=== PATIENT | female | born 1985 | race Two or more races ===

== ENCOUNTER 2017-05-05 12:54 | Emergency (ER) | payer SELFPAY ==
[~2017-05-05] VITALS: Ht 156.2 cm; Wt 54.4 kg
[2017-05-05] MEDS ORDERED: IV NORMAL SALINE 1000ML BAG 1,000 ML IV SCH (13:23)
[2017-05-05] MEDS ORDERED: KETOROLAC TROMETHAMINE 30 MG/ML INJ. IV ONE (13:30)
[2017-05-05] MEDS ORDERED: LIDO:MAALOX:DONNATAL 1:1:1 15 ML SINGLE DOSE SWSW ONE (13:30)
[2017-05-05] MEDS ORDERED: ONDANSETRON PF 4 MG/2 ML VIAL. IV ONE (13:30)
[2017-05-05 13:39] LABS: BASO % 0 % (0-3); EOS % 0 % (0-3); HEMATOCRIT 40.8 % (36.0-47.0); HEMOGLOBIN 13.7 g/dL (12.0-15.5); LYMPH # 1.3 x10^3/uL (1.0-4.8); LYMPH % 12 % (24-48); MEAN CORPUSCULAR HEMOGLOBIN 31 pg (25-35); MEAN CORPUSCULAR HGB CONC 34 g/dL (31-37); MEAN CORPUSCULAR VOLUME 92 fL (79-100); MONO % 7 % (0-9); NEUT % 81 % (31-73); PLATELET COUNT 249 x10^3/uL (140-400); RED BLOOD COUNT 4.45 x10^6/uL (3.50-5.40); RED CELL DISTRIBUTION WIDTH 13.8 % (11.5-14.5); WHITE BLOOD COUNT 10.7 x10^3/uL (4.0-11.0)
[2017-05-05 13:46] LABS: CALCIUM 9.5 mg/dL (8.5-10.1); CREATININE 0.7 mg/dL (0.6-1.0); GFR 97.6; POTASSIUM 3.5 mmol/L (3.5-5.1)
[2017-05-05 13:52] LABS: ALBUMIN 3.8 g/dL (3.4-5.0); DIRECT BILIRUBIN 0.1 mg/dL (0.0-0.2); TOTAL BILIRUBIN 0.8 mg/dL (0.2-1.0); TOTAL PROTEIN 8.5 g/dL (6.4-8.2)
--- NOTE | 2017-05-05 14:10 | PHYS DOC ---
Past Medical History Past Medical History: No Pertinent History Past Surgical History: No Surgical History Alcohol Use: None Drug Use: None Adult General Chief Complaint Chief Complaint: ABDOMINAL PAIN HPI HPI Patient is a 31 year old female who presents with 2 weeks of dry cough, rhinorrhea, nasal congestion, and chest pain with cough. States she also has multiple episodes of nbnb emesis followed by epigastric abdominal pain, constant , burning and aching. LMP March 5. She has chills without measured fever. She denies dysuria, hematuria, diarrhea, constipation, vaginal discharge. Review of Systems Review of Systems Constitutional: Denies measured fever [] Eyes: Denies change in visual acuity, redness, or eye pain [] HENT: Has nasal congestion and sore throat [] Respiratory: Denies shortness of breath [] Cardiovascular: No additional information not addressed in HPI [] GI: Denies bloody stools or diarrhea [] : Denies dysuria or hematuria [] Musculoskeletal: Denies back pain or joint pain [] Integument: Denies rash or skin lesions [] Neurologic: Denies headache, focal weakness or sensory changes [] Endocrine: Denies polyuria or polydipsia [] Current Medications Current Medications Current Medications Medications (Trade) Dose Ordered Sig/Js Start Time Stop Time Status Last Admin Dose Admin Ketorolac Tromethamine (Toradol) 10 mg 1X ONCE 05/05/17 13:30 05/05/17 13:31 DC 05/05/17 13:30 10 MG Multi-Ingredient Mouthwash/Gargle (Gi Cocktail Single Dose) 15 ml 1X ONCE 05/05/17 13:30 05/05/17 13:31 DC 05/05/17 13:30 15 ML Ondansetron HCl (Zofran) 4 mg 1X ONCE 05/05/17 13:30 05/05/17 13:31 DC 05/05/17 13:30 4 MG Sodium Chloride 1,000 ml @ 1,000 mls/hr Q1H 05/05/17 13:23 05/05/17 14:22 DC 05/05/17 13:23 1,000 MLS/HR Allergies Allergies Allergies Coded Allergies Type Severity Reaction Last Updated Verified No Known Drug Allergies 05/05/17 No Physical Exam Physical Exam Constitutional: Well developed, well nourished, no acute distress, non-toxic appearance. [] HENT: Normocephalic, atraumatic, bilateral external ears normal, oropharynx moist, no oral exudates, nose normal. [] Eyes: PERRLA, EOMI, conjunctiva normal, no discharge. [] Neck: Normal range of motion, no tenderness, supple, no stridor. [] Cardiovascular:Heart rate regular rhythm [] Lungs & Thorax: Bilateral breath sounds clear to auscultation [] Abdomen: Bowel sounds normal, soft, epigastric tenderness, no lower abdominal tenderness, no guarding or rebound. [] Skin: Warm, dry, no erythema, no rash. [] Back: No tenderness, no CVA tenderness. [] Extremities: No tenderness, ROM intact, no edema. [] Neurologic: Alert and oriented X 3, normal motor function, normal sensory function, no focal deficits noted. [] Psychologic: Affect normal, judgement normal, mood normal. [] Current Patient Data Vital Signs Vital Signs Date Time Temp Pulse Resp B/P (MAP) Pulse Ox O2 Delivery O2 Flow Rate FiO2 05/05/17 13:10 98.9 119 18 152/65 (94) 98 Room Air 98.9 Lab Values Laboratory Tests Test 05/05/17 12:22 05/05/17 13:15 POC Urine HCG, Qualitative Hcg positive (Negative) White Blood Count 10.7 x10^3/uL (4.0-11.0) Red Blood Count 4.45 x10^6/uL (3.50-5.40) Hemoglobin 13.7 g/dL (12.0-15.5) Hematocrit 40.8 % (36.0-47.0) Mean Corpuscular Volume 92 fL (79-100) Mean Corpuscular Hemoglobin 31 pg (25-35) Mean Corpuscular Hemoglobin Concent 34 g/dL (31-37) Red Cell Distribution Width 13.8 % (11.5-14.5) Platelet Count 249 x10^3/uL (140-400) Neutrophils (%) (Auto) 81 % (31-73) H Lymphocytes (%) (Auto) 12 % (24-48) L Monocytes (%) (Auto) 7 % (0-9) Eosinophils (%) (Auto) 0 % (0-3) Basophils (%) (Auto) 0 % (0-3) Neutrophils # (Auto) 8.6 x10^3uL (1.8-7.7) H Lymphocytes # (Auto) 1.3 x10^3/uL (1.0-4.8) Monocytes # (Auto) 0.8 x10^3/uL (0.0-1.1) Eosinophils # (Auto) 0.0 x10^3/uL (0.0-0.7) Basophils # (Auto) 0.0 x10^3/uL (0.0-0.2) Urine Collection Type Unknown Urine Color Maryam Urine Clarity Clear Urine pH 6.0 Urine Specific [place] 1.025 Urine Protein 30 mg/dL (NEG-TRACE) Urine Glucose (UA) Negative mg/dL (NEG) Urine Ketones (Stick) 40 mg/dL (NEG) Urine Blood Negative (NEG) Urine Nitrite Negative (NEG) Urine Bilirubin Negative (NEG) Urine Urobilinogen Dipstick 0.2 mg/dL (0.2 mg/dL) Urine Leukocyte Esterase Small (NEG) Urine RBC 0 /HPF (0-2) Urine WBC 11-20 /HPF (0-4) Urine Squamous Epithelial Cells Mod /LPF Urine Bacteria Few /HPF (0-FEW) Urine Mucus Marked /LPF Maternal Serum HCG Beta Subunit 3876 mIU/mL (0-6) H Sodium Level 137 mmol/L (136-145) Potassium Level 3.5 mmol/L (3.5-5.1) Chloride Level 100 mmol/L (98-107) Carbon Dioxide Level 26 mmol/L (21-32) Anion Gap 11 (6-14) Blood Urea Nitrogen 10 mg/dL (7-20) Creatinine 0.7 mg/dL (0.6-1.0) Estimated GFR (Cockcroft-Gault) 97.6 Glucose Level 128 mg/dL (70-99) H Calcium Level 9.5 mg/dL (8.5-10.1) Total Bilirubin 0.8 mg/dL (0.2-1.0) Direct Bilirubin 0.1 mg/dL (0.0-0.2) Aspartate Amino Transferase (AST) 13 U/L (15-37) L Alanine Aminotransferase (ALT) 23 U/L (14-59) Alkaline Phosphatase 83 U/L (46-116) Total Protein 8.5 g/dL (6.4-8.2) H Albumin 3.8 g/dL (3.4-5.0) Lipase 53 U/L (73-393) L Laboratory Tests 05/05/17 13:15 Laboratory Tests 05/05/17 13:15 Course & Med Decision Making Course & Med Decision Making Pertinent Labs and Imaging studies reviewed. (See chart for details) UCG is positive. Labs are otherwise largely unremarkable. Bedside transabdominal ultrasound as performed and interpreted by me with no pelvic free fluid, has early signs of IUP without pole, no tenderness during exam , no obvious adnexal mass. Symptoms are greatly improved. She is tolerating oral intake. She will call her OB doctor or follow up with Dr. Angel. Return precautions given. She understands and agrees with plan. Entire encounter performed using [employer] phone prydeinig-speaking diplomatic interpreter line. Dragon Disclaimer Dragon Disclaimer This electronic medical record was generated, in whole or in part, using a voice recognition dictation system. Departure Departure Impression: Primary Impression: Upper respiratory infection, viral Additional Impressions: Nausea and vomiting during Epigastric abdominal pain Disposition: 01 HOME, SELF-CARE Condition: STABLE Referrals: YUMI ANGEL MD Patient Instructions: Nausea and Vomiting, [id number] Additional Instructions: Take Tylenol as needed for pain. Take promethazine as needed for nausea. Follow- up with your OB doctor within one week. Please call for appointment. Return for any concerns. Scripts Promethazine Hcl (PROMETHAZINE HCL) 12.5 Mg Tablet 1 TAB PO Q6-8HRS Y for NAUSEA, #20 TAB 0 Refills Prov: Layla SWAN MD 05/05/17 Problem Qualifiers Layla SWAN MD May 05, 2017 14:10
[2017-05-05 14:17] LABS: BILIRUBIN,URINE NEGATIVE (NEG); GLUCOSE,URINE NEGATIVE (NEG); NITRITE,URINE NEGATIVE (NEG); PROTEIN,URINE 30 mg/dL (NEG-TRACE); UROBILINOGEN,URINE 0.2 mg/dL (0.2 mg/dL)
[2017-05-05 14:29] LABS: BACTERIA,URINE FEW /HPF (0-FEW); RBC,URINE 0 /HPF (0-2); SQUAMOUS EPITHELIAL CELL,UR MOD /LPF
--- NOTE | 2017-05-05 14:38 | RAD ---
PA chest, 05/05/2017: History: Cough The heart size is normal. No pulmonary infiltrate is seen. There is no evidence of pleural fluid. IMPRESSION: No acute cardiopulmonary abnormality is detected.
[2017-05-05] MEDS ORDERED: PROM12.56 PO (15:24)
[2017-05-05 16:32] VITALS: BP 100/63
== END 2017-05-05 16:55 | disposition home or self-care (01) ==
LOC: ER 12:54
DX: Z33.1 Pregnant state, incidental (principal); J06.9 Acute upper respiratory infection, unspecified; R11.2 Nausea with vomiting, unspecified; R10.13 Epigastric pain; R07.89 Other chest pain
CPT/HCPCS: 36415; 71010; 80048; 80076; 81001; 81025; 83690; 84702; 85027; 87086; 96361; 96374; 96375; 99285; J1885; J2405; J7030

== ENCOUNTER 2017-12-30 07:42 | Inpatient (IN) | payer SELFPAY ==
[2017-12-30] MEDS ORDERED: OXYTOCIN 30 UNIT/500 ML PREMIX 500 ML IV ×3 (08:30→15:15)
[2017-12-30] MEDS ORDERED: fentaNYL PF VIAL 100 MCG/2 ML VIAL IV (08:30)
[2017-12-30] MEDS ORDERED: 0.9 % SODIUM CHLORIDE 10 ML DISP.SYRIN. IV ×2 (08:30→15:15)
[2017-12-30] MEDS ORDERED: ONDANSETRON PF 4 MG/2 ML VIAL. IV ×2 (08:30→10:45)
[2017-12-30] MEDS ORDERED: CITRIC ACID/SODIUM CITRATE 30 ML SOLUTION. PO (08:30)
[2017-12-30] MEDS ORDERED: BUTORPHANOL 2 MG/ML VIAL. IV (08:30)
[2017-12-30] MEDS ORDERED: LIDOCAINE 1% PF 30 ML VIAL. INJ (08:30)
[2017-12-30] MEDS ORDERED: TERBUTALINE 1 MG/ML VIAL. SQ (08:30)
[2017-12-30] MEDS: PENICILLIN G K 5,000,000 UNIT in IV DEXTROSE 5% 100 ML IV (08:52)
[2017-12-30] MEDS: IV RINGERS,LACTATED 1000ML 1,000 ML IV ×2 (08:53→10:42)
[2017-12-30 09:01] LABS: HEMATOCRIT 35.1 % (36.0-47.0); HEMOGLOBIN 11.7 g/dL (12.0-15.5); MEAN CORPUSCULAR HEMOGLOBIN 31 pg (25-35); MEAN CORPUSCULAR HGB CONC 33 g/dL (31-37); MEAN CORPUSCULAR VOLUME 93 fL (79-100); PLATELET COUNT 158 x10^3/uL (140-400); RED BLOOD COUNT 3.77 x10^6/uL (3.50-5.40); RED CELL DISTRIBUTION WIDTH 18.6 % (11.5-14.5); WHITE BLOOD COUNT 7.3 x10^3/uL (4.0-11.0)
[2017-12-30] MEDS ORDERED: ROPIVacaine 0.2% IN 0.9%NACL PF 40 MG/20 ML DISP.SYRIN. (09:56)
[2017-12-30] MEDS ORDERED: L&D EPIDURAL SYRINGE 50 ML EP (09:56)
[2017-12-30] MEDS ORDERED: IV RINGERS,LACTATED 1000ML 1,000 ML IV (10:31)
[2017-12-30] MEDS: ROPIVacaine 0.2% IN 0.9%NACL PF 40 MG/20 ML DISP.SYRIN. EPI (10:43)
[2017-12-30] MEDS ORDERED: fentaNYL PF VIAL 100 MCG/2 ML VIAL EPI (10:45)
[2017-12-30] MEDS: L&D EPIDURAL SYRINGE 50 ML EP ×2 (10:45→14:16)
[2017-12-30] MEDS ORDERED: ePHEDrine PF IN SALINE 50 MG/5 ML DISP.SYRIN IV (10:45)
[2017-12-30] MEDS ORDERED: NALOXONE 0.4 MG/ML VIAL. IV (10:45)
[2017-12-30] MEDS ORDERED: OXYTOCIN PREMIX 30 UNIT/500 ML BAG. IV (11:30)
[2017-12-30] MEDS: PENICILLIN G K 2,500,000 UNIT in IV DEXTROSE 5% 50 ML IV ×3 (12:49→20:30)
[2017-12-30] MEDS ORDERED: PHENYLEPH/MINERAL OIL/PETROLAT RECTAL OINTMENT 28GM TUBE. RC (15:15)
[2017-12-30] MEDS ORDERED: MAGNESIUM HYDROXIDE 2,400 MG/30 ML ORAL.SUSP. PO (15:15)
[2017-12-30] MEDS ORDERED: SIMETHICONE 80 MG TAB.CHEW PO (15:15)
[2017-12-30] MEDS ORDERED: MMR per PROTOCOL. MC (15:15)
[2017-12-30] MEDS ORDERED: MAG HYDROX/ALUMINUM HYD/SIMETH 30 ML ORAL.SUSP PO (15:15)
[2017-12-30] MEDS ORDERED: HYDROCORTISONE 1% TOPICAL OINTMENT 30GM TUBE. TP (15:15)
[2017-12-30] MEDS ORDERED: ZOLPIDEM 5 MG TABLET. PO (15:15)
[2017-12-30] MEDS ORDERED: diphenhydrAMINE HCL 25 MG CAPSULE PO (15:15)
[2017-12-30] MEDS ORDERED: BENZOCAINE 20% TOPICAL AEROSOL SPRAY 57GM CAN. TP (15:15)
[2017-12-30] MEDS ORDERED: ACETAMINOPHEN 325 MG TABLET. PO (15:15)
[2017-12-30] MEDS: IBUPROFEN 800 MG TABLET. PO (17:32)
[2017-12-31] MEDS: IV RINGERS,LACTATED 1000ML 1,000 ML IV ×3 (00:22→16:22)
[2017-12-31] MEDS: PENICILLIN G K 2,500,000 UNIT in IV DEXTROSE 5% 50 ML IV ×6 (00:30→20:30)
[2017-12-31 06:30] LABS: ADD MAN DIFF? NO
[2017-12-31 06:41] LABS: BASO # 0.1 x10^3/uL (0.0-0.2); BASO % 1 % (0-3); EOS % 0 % (0-3); HEMATOCRIT 32.3 % (36.0-47.0); HEMOGLOBIN 10.8 g/dL (12.0-15.5); LYMPH # 2.1 x10^3/uL (1.0-4.8); LYMPH % 20 % (24-48); MEAN CORPUSCULAR HEMOGLOBIN 31 pg (25-35); MEAN CORPUSCULAR HGB CONC 33 g/dL (31-37); MEAN CORPUSCULAR VOLUME 93 fL (79-100); MONO # 0.8 x10^3/uL (0.0-1.1); MONO % 8 % (0-9); NEUT # 7.5 x10^3uL (1.8-7.7); NEUT % 72 % (31-73); PLATELET COUNT 157 x10^3/uL (140-400); RED BLOOD COUNT 3.48 x10^6/uL (3.50-5.40); RED CELL DISTRIBUTION WIDTH 18.5 % (11.5-14.5); WHITE BLOOD COUNT 10.5 x10^3/uL (4.0-11.0)
[2017-12-31 07:32] LABS: RPR Non Reactive (Non Reactive)
[2017-12-31] MEDS ORDERED: FERROUS SULFATE 325 MG TABLET. PO (08:00)
[2017-12-31] MEDS: IBUPROFEN 800 MG TABLET. PO ×2 (12:18→20:23)
[2017-12-31] MEDS: DIPHTH,PERTUSS(ACELL),TET TOX 0.5 ML DISP.SYRIN. VAX IM (16:06)
[2017-12-31] MEDS: oxyCODONE/APAP 5/325 1 TAB TABLET PO (20:22)
[2017-12-31] MEDS: DOCUSATE SODIUM 100 MG CAPSULE. PO (20:22)
[2018-01-01] MEDS: IV RINGERS,LACTATED 1000ML 1,000 ML IV ×2 (00:22→03:46)
[2018-01-01] MEDS: PENICILLIN G K 2,500,000 UNIT in IV DEXTROSE 5% 50 ML IV (00:30)
[2018-01-01] MEDS: oxyCODONE/APAP 5/325 1 TAB TABLET PO (02:09)
[2018-01-01] MEDS: IBUPROFEN 800 MG TABLET. PO (02:10)
[2018-01-01] MEDS: L&D EPIDURAL SYRINGE 50 ML EP ×2 (03:54)
[2018-01-01] MEDS: DOCUSATE SODIUM 100 MG CAPSULE. PO (09:22)
== END 2018-01-01 15:00 | disposition home or self-care (01) | DRG 775 ==
LOC: 3 SO LND 07:42 → 3 NORTH 19:45
PROC: 10E0XZZ Delivery of Products of Conception, External Approach (ICD-10-PCS; principal; 2017-12-30)
PROC: 3E0R3BZ Introduction of Anesthetic Agent into Spinal Canal, Percutaneous Approach (ICD-10-PCS; 2017-12-30)
PROC: 00HU33Z Insertion of Infusion Device into Spinal Canal, Percutaneous Approach (ICD-10-PCS; 2017-12-30)
PROC: 3E0234Z Introduction of Serum, Toxoid and Vaccine into Muscle, Percutaneous Approach (ICD-10-PCS; 2017-12-30)
DX: O99.824 Streptococcus B carrier state complicating childbirth (principal); Z23 Encounter for immunization; Z37.0 Single live birth; Z3A.39 39 weeks gestation of pregnancy; O80 Encounter for full-term uncomplicated delivery
CPT/HCPCS: 36415; 85025; 85027; 86593; 86850; 86900; 86901; 90715; G0378; J2540; J2590; J2795; J7120